=== PATIENT | female | born 1970 | race Caucasian/White ===

== ENCOUNTER 2018-03-27 14:46 | Emergency (ER) | payer OTHER ==
[2018-03-27 15:14] VITALS: TEMP 98.9; O2SAT 98
--- NOTE | 2018-03-27 15:44 | C.PDOC ---
History Of Present Illness 48 y/o female presents to the ED complaining of 4 month history of chest pain. Pain is described as positionally and digitally reproducible. 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 Otherwise patient denies any SOB, dizziness, GOMEZ, palpitations, visual changes, leg swelling, or other complaints. Time Seen by Provider: 03/27/18 15:33 Chief Complaint (Nursing): Chest Pain History Per: Patient History/Exam Limitations: no limitations Onset/Duration Of Symptoms: Days Current Symptoms Are (Timing): Still Present Past Medical History Reviewed: Historical Data, Nursing Documentation, Vital Signs Vital Signs: Last Vital Signs Temp 98.9 F 03/27/18 15:12 Pulse 77 03/27/18 15:53 Resp 19 03/27/18 15:53 BP 146/88 03/27/18 15:53 Pulse Ox 98 03/27/18 15:53 - Medical History PMH: Arthritis, HTN Family History: States: No Known Family Hx - Social History Hx Tobacco Use: No Hx Alcohol Use: No Hx Substance Use: No - Immunization History Hx Tetanus Toxoid Vaccination: No Hx Influenza Vaccination: No Hx Pneumococcal Vaccination: No Review Of Systems Except As Marked, All Systems Reviewed And Found Negative. Constitutional: Negative for: Fever, Chills, Sweats Eyes: Negative for: Vision Change Cardiovascular: Positive for: Chest Pain. Negative for: Palpitations, Light Headedness Respiratory: Negative for: Cough, Shortness of Breath, SOB with Excertion Gastrointestinal: Negative for: Nausea, Vomiting Neurological: Negative for: Weakness, Numbness, Headache, Dizziness Physical Exam - Physical Exam Appears: Non-toxic, No Acute Distress Skin: Normal Color, Warm, Dry Head: Atraumatic, Normacephalic Eye(s): bilateral: Normal Inspection, PERRL, EOMI Oral Mucosa: Moist Neck: Normal ROM, Supple Chest: Tenderness (Digitally reproducible bilateral parasternal tenderness) Cardiovascular: Rhythm Regular, No Murmur Respiratory: Normal Breath Sounds, No Rales, No Rhonchi, No Wheezing Gastrointestinal/Abdominal: Soft, No Tenderness, No Distention Extremity: Bilateral: Atraumatic, Normal Color And Temperature, Normal ROM Pulses: Left Radial: Normal, Right Radial: Normal Neurological/Psych: Oriented x3, Normal Speech ED Course And Treatment O2 Sat by Pulse Oximetry: 98 (RA) Pulse Ox Interpretation: Normal Medical Decision Making Medical Decision Making: Impression: b/l parasternal costochondritis for "months" due to repetitive movements as a seamstress Initial Plan: --Motrin PO Patient counseled regarding diagnosis and treatment plan. She remains AAOx3, afebrile, in no acute distress, stable for d/c home. Disposition Doctor Will See Patient In The: Office Counseled Patient/Family Regarding: Studies Performed, Diagnosis - Disposition [facility]errals: [facility] [Outside] [employer] [facility] [Outside] [facility] [Outside] [facility] [Outside] Disposition: HOME/ ROUTINE Disposition Time: 15:44 Condition: GOOD Additional Instructions: [place] 1/2 hora por hora, nada caliente ibuprofeno/Advil/Motrin 400-600 mg cada 6 horas lora necessario Jessica levantando cosas pesadas y movimientos repetativos que provocan george dolor. EKG NORMAL- medina dolor NO es cardiaco. Instructions: Costochondritis Forms: [employer] (Chinese) Print Language: LATVIAN - Clinical Impression Clinical Impression: Chest wall discomfort - Scribe Statement The provider has reviewed the documentation as recorded by the Scribe (Karen Ni) Provider Attestation: All medical record entries made by the Scribe were at my direction and personally dictated by me. I have reviewed the chart and agree that the record accurately reflects my personal performance of the history, physical exam, medical decision making, and the department course for this patient. I have also personally directed, reviewed, and agree with the discharge instructions and disposition.
[2018-03-27 15:54] VITALS: BP 146/88; PULSE 77; RESP 19
--- NOTE | 2018-03-28 11:44 | CARD ---
APPROVED REPORT Date of service: 03/27/2018 EKG Measurement Heart [id number] <Conclusion> Normal sinus rhythm Normal EKG
== END 2018-03-27 15:53 | disposition home or self-care (01) ==
LOC: C.ER 14:46
DX: R07.89 Other chest pain (principal); I10 Essential (primary) hypertension